=== PATIENT | male | born 1995 | race Caucasian/White ===

== ENCOUNTER → 2018-10-26 | Emergency (ER) | payer SELFPAY ==
[2018-10-26] MEDS: SOD CHLORIDE 0.9% 1,000 ML IV (21:09)
[2018-10-26 21:11] LABS: ADD MAN DIFF? NO
[2018-10-26 21:12] LABS: ABNORMAL IP MESSAGE 1; BASOPHIL # 0.1 10^3/ul (0.0-0.1); BASOPHILS % 0.4 % (0.0-2.0); HEMOGLOBIN 15.3 g/dl (14.0-18.0); LYMPHOCYTES # 0.7 10^3/ul (0.8-2.9); LYMPHOCYTES % 2.9 % (15.0-51.0); MEAN CORPUSCULAR HEMOGLOBIN 30.6 pg (29.0-33.0); MEAN CORPUSCULAR HGB CONC 34.8 g/dl (32.0-37.0); MEAN PLATELET VOLUME 10.3 fl (7.4-10.4); MONOCYTE # 1.6 10^3/ul (0.3-0.9); MONOCYTES % 7.1 % (0.0-11.0); NEUTROPHIL # 19.8 10^3/ul (1.6-7.5); NEUTROPHILS % 88.7 % (39.0-77.0); PLATELET COUNT 257 10^3/UL (140-415); POSITIVE DIFF @See below; RED CELL DISTRIBUTION WIDTH 12.4 % (11.5-14.5)
[2018-10-26 21:12] LABS: WHITE BLOOD COUNT 22.3 10^3/ul (4.8-10.8)
[2018-10-26] MEDS: MAGNESIUM SULFATE 2 GM/50 ML 50 ML IVPB (21:26)
[2018-10-26 21:37] LABS: ALANINE AMINOTRANSFERASE 18 IU/L (13-69); ALBUMIN 5.3 g/dl (3.3-4.9); ALBUMIN/GLOBULIN RATIO 1.89; ALKALINE PHOSPHATASE 55 IU/L (42-121); ANION GAP 21 (5-13); ASPARTATE AMINO TRANSFERASE 36 IU/L (15-46); BILIRUBIN,INDIRECT 0.5 mg/dl (0-1.1); BILIRUBIN,TOTAL 0.5 mg/dl (0.2-1.3); BLOOD UREA NITROGEN 18 mg/dl (7-20); CALCIUM 10.1 mg/dl (8.4-10.2); CARBON DIOXIDE 21 mmol/L (21-31); CHLORIDE 101 mmol/L (97-110); CREATININE 1.31 mg/dl (0.61-1.24); Estimated GFR > 60 mL/min (>60); GLUCOSE 227 mg/dl (70-220); LIPASE 59 U/L (23-300); POTASSIUM 3.3 mmol/L (3.5-5.1); SODIUM 143 mmol/L (135-144); TOTAL PROTEIN 8.1 g/dl (6.1-8.1)
[2018-10-26 21:49] LABS: TROPONIN-I 0.081 ng/ml (0.000-0.120)
[2018-10-26] MEDS: LORAZEPAM 2 MG INJ IV (22:01)
== END | disposition home or self-care (01) ==
LOC: E/R 19:39
DX: F19.10 Other psychoactive substance abuse, uncomplicated (principal); F17.210 Nicotine dependence, cigarettes, uncomplicated; R40.2142 Coma scale, eyes open, spontaneous, at arrival to emergency department; R40.2242 Coma scale, best verbal response, confused conversation, at arrival to emergency department; R40.2362 Coma scale, best motor response, obeys commands, at arrival to emergency department; R10.9 Unspecified abdominal pain
CPT/HCPCS: 36415; 71045; 80053; 83690; 84484; 85025; 93005; 96374; 96375; 99285-25